=== PATIENT | female | born 1955 | race Two or more races ===

== ENCOUNTER 2019-06-14 14:39 | Inpatient (IN) | payer MEDICAID ==
[~2019-06-14] VITALS: Ht 154.9 cm; Wt 85.0 kg
[2019-06-14] MEDS ORDERED: ASPirin 81 mg TAB PO ONE (15:15)
[2019-06-14 15:41] LABS: Albumin 3.3 g/dL (3.4-5.0); Anion Gap 9 (5-15); Blood Urea Nitrogen 14 mg/dL (7-18); Calcium 8.1 mg/dL (8.5-10.1); Carbon Dioxide 25 mmol/L (21-32); Chloride 106 mmol/L (98-107); Glucose 393 mg/dL (74-106); Potassium 3.7 mmol/L (3.5-5.1); Sodium 140 mmol/L (136-145)
[2019-06-14 15:43] LABS: Basophils # (auto) 0 uL; Basophils % (auto) 0.5 % (0.0-2.0); Eosinophils # (auto) 0 uL; Eosinophils % (auto) 0.9 % (0.0-7.0); Hematocrit 32.9 % (36.0-46.0); Hemoglobin 11.3 g/dL (12.2-16.2); Lymphocytes # (auto) 0.6 uL; Lymphocytes % (auto) 10.8 % (10.0-50.0); Mean Corpuscular Hemoglobin 32.5 pg (28.0-32.0); Mean Corpuscular Hgb Conc. 34.2 g/dL (32.0-36.0); Mean Corpuscular Volume 94.9 fL (80.0-100.0); Monocytes # (auto) 0.4 uL; Monocytes % (auto) 6.8 % (0.0-12.0); Neutrophils # (auto) 4.3 uL; Nucleated Red Blood Cells % 0.1 %; Platelet Count (auto) 115 10^3/uL (140-450); Red Blood Cells 3.47 10^6/uL (4.0-5.20); Red Cell Distribution Width 14.7 % (11.8-14.3); White Blood Cell 5.3 10^3/uL (4.4-10.8)
[2019-06-14 15:44] LABS: Alanine Aminotransferase 28 U/L (13-56); Alkaline Phosphatase 140 U/L (45-117); Aspartate Aminotransferase 29 U/L (15-37); BUN/Creatinine Ratio 13.7; Bilirubin, Total 1.2 mg/dL (0.2-1.0); GFR African American 71 mL/min; GFR Non-African American 59 mL/min; Total Protein 6.7 g/dL (6.4-8.2)
[2019-06-14 15:53] LABS: INR 1.04 (0.9-1.15); Partial Thromboplastin Time 25.9 sec (23.64-32.05)
[2019-06-14] MEDS ORDERED: SODIUM CHLORIDE 0.9% 1,000 ML IV ONE (15:58)
[2019-06-14] MEDS ORDERED: NITROGLYCERIN 0.4 MG SL TAB SL PRN (17:15)
[2019-06-14] MEDS ORDERED: ONDANSETRON HCL 4 MG/2 ML VIAL IV PRN (17:15)
[2019-06-14] MEDS ORDERED: HYDROcodone-ACET 5/325MG TAB PO PRN (17:15)
[2019-06-14] MEDS ORDERED: DEXTROSE (50%) 50ML SYRG IV PRN ×2 (17:15→21:00)
[2019-06-14] MEDS ORDERED: MORPHINE SULF INJ 2 MG/ML SYRINGE 1ML IV PRN ×2 (17:15)
[2019-06-14] MEDS ORDERED: ACETAMINOPHEN 500 MG TAB PO PRN (17:15)
[2019-06-14] MEDS ORDERED: hydrALAZINE HCL 20 MG/ML VL IV PRN (17:15)
[2019-06-14 18:01] LABS: Urine Bacteria FEW /hpf (None Seen); Urine Blood Negative /uL (Negative); Urine Hyaline Cast FEW /lpf (0 - 2); Urine Mucus FEW (None Seen); Urine WBC 4 /hpf (0 - 5)
--- NOTE | 2019-06-14 18:50 | NUR ---
Pt arrived to unit. No signs or symptoms of pain/distress/SOB. Patient is alert and oriented x 4. Call light is within reach and patient is comfortable and stable at this time. Will continue to monitor.
[2019-06-14 19:00] VITALS: BP 140/80
--- NOTE | 2019-06-14 19:00 | NUR ---
Med Rec Patient unable to recall her medication list. Patient will have family members bring in list tomorrow. Will notify primary nurse.
[2019-06-14 21:52] LABS: Basophils # (auto) 0 uL; Basophils % (auto) 0.5 % (0.0-2.0); Eosinophils # (auto) 0 uL; Eosinophils % (auto) 1.6 % (0.0-7.0); Hematocrit 27.7 % (36.0-46.0); Hemoglobin 9.7 g/dL (12.2-16.2); Lymphocytes # (auto) 0.4 uL; Lymphocytes % (auto) 17.3 % (10.0-50.0); Mean Corpuscular Hgb Conc. 34.9 g/dL (32.0-36.0); Mean Corpuscular Volume 94.7 fL (80.0-100.0); Monocytes # (auto) 0.2 uL; Monocytes % (auto) 9.5 % (0.0-12.0); Neutrophils # (auto) 1.8 uL; Neutrophils % (auto) 71.1 % (37.0-80.0); Nucleated Red Blood Cells % 0.1 %; Platelet Count (auto) 73 10^3/uL (140-450); Red Blood Cells 2.93 10^6/uL (4.0-5.20); Red Cell Distribution Width 14.6 % (11.8-14.3); White Blood Cell 2.6 10^3/uL (4.4-10.8)
[2019-06-14 22:00] VITALS: BP 140/80
[2019-06-14] MEDS ORDERED: DOCUSATE SOD 100 MG CAP PO SCH (22:00)
[2019-06-14] MEDS ORDERED: ACCU-CHEK COMFORT CURVE STRIP VI SCH (22:00)
[2019-06-14] MEDS ORDERED: InsuLIN REG 1unit/0.01ml Soln (100units/ml) SC SCH (22:00)
[2019-06-14] MEDS: DOCUSATE SOD 100 MG CAP PO SCH (22:00)
[2019-06-14] MEDS ORDERED: METOPROLOL TARTRATE 25 MG TAB PO SCH (22:00)
[2019-06-14] MEDS ORDERED: ATORVASTATIN 20 MG TAB PO SCH (22:00)
[2019-06-14 22:14] LABS: INR 1.06 (0.9-1.15); Partial Thromboplastin Time 26.7 sec (23.64-32.05)
[2019-06-14 22:17] LABS: Calcium 8.1 mg/dL (8.5-10.1); Potassium 3.9 mmol/L (3.5-5.1)
[2019-06-14] MEDS: METOPROLOL TARTRATE 25 MG TAB PO SCH (22:35)
[2019-06-14] MEDS: ATORVASTATIN 20 MG TAB PO SCH (22:35)
[2019-06-14] MEDS: HYDROcodone-ACET 5/325MG TAB PO PRN (22:36)
[2019-06-14] MEDS: ACCU-CHEK COMFORT CURVE STRIP VI SCH (22:38)
[2019-06-14] MEDS: InsuLIN REG 1unit/0.01ml Soln (100units/ml) SC SCH (22:50)
[2019-06-15 05:42] VITALS: BP 126/66
[2019-06-15] MEDS: ACCU-CHEK COMFORT CURVE STRIP VI SCH ×4 (06:49→21:37)
[2019-06-15] MEDS: InsuLIN REG 1unit/0.01ml Soln (100units/ml) SC SCH ×4 (06:50→21:37)
--- NOTE | 2019-06-15 07:10 | NUR ---
Opening Shift Note Received report on the patient. Patient awake lying in bed eating breakfast. Patient shows no signs of distress at this time. Discussed plan of care with the patient. Bed is in lowest position, side rails up x2, and call light is within reach. Will continue to monitor.
[2019-06-15 09:00] VITALS: BP 136/70
[2019-06-15] MEDS: LISINOPRIL 10 MG TAB PO SCH (09:54)
[2019-06-15] MEDS: HYDROcodone-ACET 5/325MG TAB PO PRN ×2 (09:54→18:59)
[2019-06-15] MEDS: METOPROLOL TARTRATE 25 MG TAB PO SCH ×2 (09:54→21:36)
[2019-06-15] MEDS: ASPirin-EC 81 mg tab PO SCH (09:55)
[2019-06-15] MEDS: FAMOTIDINE 20 MG TAB PO SCH (09:55)
[2019-06-15] MEDS: DOCUSATE SOD 100 MG CAP PO SCH ×2 (09:56→21:35)
[2019-06-15] MEDS ORDERED: LISINOPRIL 10 MG TAB PO SCH (10:00)
[2019-06-15] MEDS ORDERED: FAMOTIDINE 20 MG TAB PO SCH (10:00)
[2019-06-15] MEDS ORDERED: ASPirin-EC 81 mg tab PO SCH (10:00)
[2019-06-15] MEDS ORDERED: cefTRIAXone 1GM/50ML D5W 50 ML IV ONE (10:30)
[2019-06-15 11:14] LABS: Hepatitis B Surface Antibody Negative
[2019-06-15 11:54] LABS: Hepatitis A Total Antibody Negative
[2019-06-15 13:00] VITALS: BP 127/68
[2019-06-15 13:27] LABS: Hepatitis B Core Total AB Negative
[2019-06-15 13:28] LABS: Hepatitis B Surface Antigen Negative (Negative); Hepatitis C Antibody Negative (Negative)
--- NOTE | 2019-06-15 13:45 | NUR ---
UA Urine sample collected and sent to lab.
[2019-06-15 14:18] LABS: Alcohol, Urine < 3.0 mg/dL (0-5); Amphetamine Screen, Urine NEGATIVE (NEGATIVE); Barbiturate Scree,Urine NEGATIVE (NEGATIVE); Benzodiazephine Screen, Urine NEGATIVE (NEGATIVE); Cannabinoid Screen, Urine NEGATIVE (NEGATIVE); Cocaine Screen, Urine NEGATIVE (NEGATIVE); Opiate Scree,Urine POSITIVE (NEGATIVE); Phencyclidine Screen, Urine NEGATIVE (NEGATIVE)
[2019-06-15 17:00] VITALS: BP 123/57
--- NOTE | 2019-06-15 19:00 | NUR ---
Opening Shift Note Assumed care of patient, awake and alert. No S/S of distress/SOB or pain. Instructed on POC and to call for assist PRN, will continue to monitor for changes Q1hr and PRN.
[2019-06-15] MEDS: ATORVASTATIN 20 MG TAB PO SCH (21:36)
[2019-06-15 21:37] VITALS: BP 138/72
--- NOTE | 2019-06-15 23:39 | NUR ---
KEVIN Zurita called pharmacy and informed them about patient's morphine being present on the E-MAR but not in the pyxis. Pharmacy informed RN they will reprocess the order to see if that fixes the issue.
[2019-06-15] MEDS ORDERED: MORPHINE SULF INJ 2 MG/ML SYRINGE 1ML IV PRN (23:45)
[2019-06-16] VITALS (7 sets, daily range): BP systolic 96–145; BP diastolic 58–75
[2019-06-16 06:22] LABS: Basophils # (auto) 0 uL; Basophils % (auto) 0.7 % (0.0-2.0); Eosinophils # (auto) 0.1 uL; Eosinophils % (auto) 3.1 % (0.0-7.0); Hematocrit 29.2 % (36.0-46.0); Hemoglobin 10.2 g/dL (12.2-16.2); Lymphocytes # (auto) 0.5 uL; Lymphocytes % (auto) 18.5 % (10.0-50.0); Mean Corpuscular Hemoglobin 33.1 pg (28.0-32.0); Mean Corpuscular Volume 94.6 fL (80.0-100.0); Monocytes # (auto) 0.3 uL; Monocytes % (auto) 11.7 % (0.0-12.0); Neutrophils # (auto) 1.8 uL; Platelet Count (auto) 74 10^3/uL (140-450); Red Blood Cells 3.09 10^6/uL (4.0-5.20); Red Cell Distribution Width 14.2 % (11.8-14.3); White Blood Cell 2.7 10^3/uL (4.4-10.8)
[2019-06-16] MEDS: ACCU-CHEK COMFORT CURVE STRIP VI SCH ×4 (06:31→21:32)
[2019-06-16] MEDS: InsuLIN REG 1unit/0.01ml Soln (100units/ml) SC SCH ×4 (06:31→21:33)
[2019-06-16 06:37] LABS: Albumin 2.9 g/dL (3.4-5.0); Calcium 8.4 mg/dL (8.5-10.1); Magnesium 1.8 mg/dL (1.6-2.6)
[2019-06-16 06:42] LABS: % Iron Saturation 27.4 % (15-50)
[2019-06-16 06:43] LABS: BUN/Creatinine Ratio 27.8; Bilirubin, Total 1.4 mg/dL (0.2-1.0); Total Protein 6.1 g/dL (6.4-8.2)
[2019-06-16 06:50] LABS: Ferritin 98.1 ng/mL (10-322)
[2019-06-16 06:51] LABS: Folate (Folic Acid) 11.39 ng/mL (5.38-24)
--- NOTE | 2019-06-16 07:20 | NUR ---
Opening Shift Note Received report on the patient. Awake lying in bed. Patient shows no signs of distress at this time. Discussed plan of care with the patient. Bed is in the lowest position, side rails up x2, and the call light is within reach. Will continue to monitor.
[2019-06-16] MEDS ORDERED: ADENOSINE 71 MG in GIVE UN-DILUTED 0 ML IV STA (08:13)
[2019-06-16] MEDS: cefTRIAXone 1GM/50ML D5W 50 ML IV SCH (08:53)
--- NOTE | 2019-06-16 09:14 | NUR ---
IV insertion IV access obtained, via clean sterile technique by inserting a 20 gauge catheter at the left AC after 1 attempt. IV secured properly. No trauma to site. Patient tolerated well.
[2019-06-16] MEDS: DOCUSATE SOD 100 MG CAP PO SCH ×2 (10:00→21:31)
--- NOTE | 2019-06-16 10:01 | NUR ---
Stress Test Patient gone down to stress test. No signs of distress at this time.
[2019-06-16] MEDS: ASPirin-EC 81 mg tab PO SCH (11:44)
[2019-06-16] MEDS: FAMOTIDINE 20 MG TAB PO SCH (11:45)
[2019-06-16] MEDS: LISINOPRIL 10 MG TAB PO SCH (11:46)
[2019-06-16] MEDS: METOPROLOL TARTRATE 25 MG TAB PO SCH ×2 (11:46→21:32)
[2019-06-16] MEDS ORDERED: POLYETHYLENE GLYCOL 17 GM PWDR PO ONE (15:15)
[2019-06-16] MEDS: HYDROcodone-ACET 5/325MG TAB PO PRN ×2 (15:57→21:33)
--- NOTE | 2019-06-16 19:40 | NUR ---
IV insertion IV access to left FA obtained, via clean sterile technique by inserting 20 gauge catheter after first attempt. IV secured properly. No trauma to site. Patient tolerated procedure well.
[2019-06-16] MEDS: ATORVASTATIN 20 MG TAB PO SCH (21:31)
[2019-06-16] MEDS: MAGNESIUM OXIDE 400 MG TAB PO SCH (21:32)
[2019-06-17] MEDS: HYDROcodone-ACET 5/325MG TAB PO PRN ×2 (03:13→09:14)
[2019-06-17 06:18] VITALS: BP 139/79
[2019-06-17] MEDS: ACCU-CHEK COMFORT CURVE STRIP VI SCH ×3 (06:46→17:49)
[2019-06-17] MEDS: InsuLIN REG 1unit/0.01ml Soln (100units/ml) SC SCH ×3 (06:46→17:49)
[2019-06-17] MEDS ORDERED: SODIUM CHLORIDE 0.9% 1,000 ML IV ONE (07:45)
--- NOTE | 2019-06-17 08:43 | NUR ---
Opening Shift Note Assumed care of patient, awake and alert, oriented x 4 and verbally responsive. Respiratory even and unlabored. No S/S of distress/SOB or pain. Skin is warm and dry to touch, no s/s of hyperglycemia or hypoglycemia noted. NPO for LHC, patient tolerated well. Instructed on POC and to call for assist PRN, will continue to monitor for changes Q1hr and PRN.
[2019-06-17 09:05] VITALS: BP 141/80
--- NOTE | 2019-06-17 09:05 | NUR ---
Patient does not want to sign a consent form until the doctor give explanation about procedure, will inform medical lab technologist nurse.
[2019-06-17] MEDS: cefTRIAXone 1GM/50ML D5W 50 ML IV SCH (09:06)
[2019-06-17] MEDS: FAMOTIDINE 20 MG TAB PO SCH (09:07)
[2019-06-17] MEDS: MAGNESIUM OXIDE 400 MG TAB PO SCH (09:07)
[2019-06-17] MEDS: LISINOPRIL 10 MG TAB PO SCH (09:08)
[2019-06-17] MEDS: METOPROLOL TARTRATE 25 MG TAB PO SCH (09:08)
[2019-06-17] MEDS: ASPirin-EC 81 mg tab PO SCH (09:08)
[2019-06-17] MEDS: DOCUSATE SOD 100 MG CAP PO SCH (09:09)
--- NOTE | 2019-06-17 10:32 | NUR ---
Patient left unit to process laboratory specialist.
[2019-06-17] MEDS ORDERED: LIDOCAINE 2%HCL (LOCAL ANESTH.) INJ 20ML MDV ONE (10:35)
[2019-06-17] MEDS ORDERED: IODIXANOL 320MG/ML 100ML BTL IV ONE (10:35)
[2019-06-17] MEDS ORDERED: VERAPAMIL 2.5MG/ML INJ 2ML VIAL IV ONE (11:42)
[2019-06-17] MEDS ORDERED: ANGIOMAX 250 MG VIAL IV ONE (11:42)
[2019-06-17] MEDS ORDERED: fentaNYL CITRATE 100 MCG/2 ML VL ONE (11:42)
[2019-06-17] MEDS ORDERED: MIDAZOLAM HCL 1MG/1ML-2 ML VIAL ONE (11:43)
[2019-06-17] MEDS ORDERED: SODIUM CHL 0.9% 0 ML ONE (11:43)
[2019-06-17] MEDS ORDERED: HEPARIN SODIUM (PORCINE) 5000 UNITS/ML 1ML VIAL ONE (12:33)
[2019-06-17 13:28] VITALS: BP 148/74
--- NOTE | 2019-06-17 13:40 | NUR ---
Patient came back from semiconductor lab technician , Vasc band on the right wrist, will start deflated around 1345.
--- NOTE | 2019-06-17 13:41 | NUR ---
Neris (DAVID) called regarding central lab technician notified that right hand has dark skin color, cold to touch. However, never get any report from warehouse shift supervisor. Assessed patient to right hand, skin a bit dark and warm to touch, no swelling or bleeding noted. Patient stated from the previous IV at ER, cold pack is placed. Charge nurse (Mago) called , will come to assess. Will continue to monitor.
[2019-06-17] MEDS ORDERED: ASP81EC PO (13:48)
[2019-06-17] MEDS ORDERED: ATOR20TA50 PO (13:48)
--- NOTE | 2019-06-17 14:20 | NUR ---
Assess pt's rt hand, pt's rt hand has redness and swelling, Dr. Kuo informed and doctor came to bed side to assess pt's rt hand, doctor educated the pt that the redness and swelling was due to the IV infiltration, pt informed by doctor that the redness and swelling will last for the next 3 to 5 days, pt educated by doctor to place ice pack, to take Motrin over the counter for pain, and to come to the emergency room for evaluation if the swelling and redness increases.
--- NOTE | 2019-06-17 14:39 | NUR ---
Called Tarsha regarding E-prescription, stated it will be ready in 5 mins , patient notified.
[2019-06-17 14:58] VITALS: BP 148/74
--- NOTE | 2019-06-17 16:15 | NUR ---
Removed Vasc band from left wrist, covered with Gauzed and Tegaderm, no s/s of bleeding or hematoma noted. Will continue to monitor.
--- NOTE | 2019-06-17 17:06 | NUR ---
Elli Garza (DOROTHY) spoke to patient regarding PCP , per ELLI patient will change to [facility] and requesting change [facility] PCP to Dr. Kuo #[phone] Address : [address] [place] [address] Rd, [place], [address].
[2019-06-17 17:27] VITALS: BP 133/76
--- NOTE | 2019-06-17 17:45 | NUR ---
No bleeding or hematoma to left wrist.
--- NOTE | 2019-06-17 17:55 | NUR ---
Discharge instructions given as ordered. Encourage to follow up with (Patient requesting change [facility] PCP to Dr. Kuo #[phone] Address : [address], [place], [address]) as instructed. All questions and concerns addressed. Patient verbalized understanding. Medication reconciliation form completed and copy given to patient. IV removed with catheter intact, pressure dressing applied. Telemetry unit returned to ICU. Patient taken to vehicle via wheelchair with all personal belongings, accompanied by staff and family member. No distress noted at time of departure.
== END 2019-06-17 17:55 | disposition home or self-care (01) | DRG 191 ==
LOC: ER 14:44 → TELE-WESTW 14:45 → ER 18:40 → EDSTATUS 20:20
PROVIDERS: ADMIT Nurse Practitioner Acute Care; ATTEND Internal Medicine
PROC: 4A023N7 Measurement of Cardiac Sampling and Pressure, Left Heart, Percutaneous Approach (ICD-10-PCS; principal; 2019-06-17)
PROC: B211YZZ Fluoroscopy of Multiple Coronary Arteries using Other Contrast (ICD-10-PCS; 2019-06-17)
PROC: B215YZZ Fluoroscopy of Left Heart using Other Contrast (ICD-10-PCS; 2019-06-17)
DX: I24.9 Acute ischemic heart disease, unspecified (principal); D69.6 Thrombocytopenia, unspecified; I95.9 Hypotension, unspecified; E66.01 Morbid (severe) obesity due to excess calories; K76.0 Fatty (change of) liver, not elsewhere classified; D64.9 Anemia, unspecified; E11.9 Type 2 diabetes mellitus without complications; F41.9 Anxiety disorder, unspecified; I10 Essential (primary) hypertension; N39.0 Urinary tract infection, site not specified; I45.10 Unspecified right bundle-branch block; Z90.49 Acquired absence of other specified parts of digestive tract; Z79.84 Long term (current) use of oral hypoglycemic drugs; Z68.35 Body mass index [BMI] 35.0-35.9, adult; Z83.3 Family history of diabetes mellitus; Z82.49 Family history of ischemic heart disease and other diseases of the circulatory system; Z80.0 Family history of malignant neoplasm of digestive organs; Z79.899 Other long term (current) drug therapy
CPT/HCPCS: 36415; 71045; 76705; 78452; 80048; 80053; 80061; 80307; 81001; 82270; 82607; 82728; 82746; 82962; 83036; 83540; 83550; 83735; 83880; 84443; 84484; 85025; 85610; 85730; 86141; 86703; 86704; 86706; 86708; 86803; 87340; 93005; 93017; 93306; 93458; 96361; 96365; 99152; 99153; G0378; J0153; J0696; J1815; J2250; Q9967

== ENCOUNTER 2020-02-29 12:13 | Emergency (ER) | payer MEDICAID ==
[~2020-02-29 12:13] MED LIST: ASPI-394 PO; ATOR20TA50 PO
== END 2020-02-29 13:26 | disposition left against medical advice (07) ==
LOC: ER 12:13
DX: R50.9 Fever, unspecified (principal); Z53.21 Procedure and treatment not carried out due to patient leaving prior to being seen by health care provider

== ENCOUNTER 2020-03-11 21:45 | Inpatient (IN) | payer MEDICAID ==
[~2020-03-11] VITALS: Ht 157.5 cm; Wt 90.3 kg
[2020-03-11 23:20] LABS: Hematocrit 33.8 % (36.0-46.0); Hemoglobin 11.1 g/dL (12.2-16.2); Mean Corpuscular Hemoglobin 30.6 pg (28.0-32.0); Mean Corpuscular Hgb Conc. 32.9 g/dL (32.0-36.0); Mean Corpuscular Volume 93.2 fL (80.0-100.0); Platelet Count (auto) 205 10^3/uL (140-450); Red Blood Cells 3.63 10^6/uL (4.0-5.20); Red Cell Distribution Width 13.8 % (11.8-14.3); White Blood Cell 18.7 10^3/uL (4.4-10.8)
[2020-03-11] MEDS ORDERED: SODIUM CHLORIDE 0.9% 1,000 ML IV ONE (23:30)
[2020-03-11 23:45] LABS: Alanine Aminotransferase 17 U/L (13-56); Albumin 2.5 g/dL (3.4-5.0); Anion Gap 21 (5-15); Aspartate Aminotransferase 19 U/L (15-37); BUN/Creatinine Ratio 13.5; Blood Urea Nitrogen 46 mg/dL (7-18); Calcium 9.1 mg/dL (8.5-10.1); Carbon Dioxide 15 mmol/L (21-32); Chloride 94 mmol/L (98-107); GFR African American 18 mL/min; GFR Non-African American 14 mL/min; Glucose 207 mg/dL (74-106); Magnesium 1.5 mg/dL (1.6-2.6); Potassium 4.5 mmol/L (3.5-5.1); Sodium 130 mmol/L (136-145)
[2020-03-11 23:50] LABS: Alkaline Phosphatase 143 U/L (45-117); Basophils % (manual) 0 (0.0-2.0); Bilirubin, Total 2.2 mg/dL (0.2-1.0); Blast Cells 0; Eosinophils % (manual) 0 (0-7); Lactic Acid w/Reflex 9.8 mmol/L (0.4-2.0); Promyelocytes % 0; Reactive Lymphocytes 0; Total Protein 6.8 g/dL (6.4-8.2)
[2020-03-11 23:55] LABS: Band Neutrophils % (manual) 12; Lymphocytes % (manual) 2 (10.0-50.0); Metamyelocytes % 1; Monocytes % (manual) 1 (0-12); Myelocytes % 1
[2020-03-12 00:15] LABS: INR 1.2 (0.9-1.15); Partial Thromboplastin Time 29.3 sec (23.0-31.2)
[2020-03-12] MEDS ORDERED: SODIUM CHLORIDE 0.9% 1,000 ML IV ONE (00:18)
[2020-03-12] MEDS ORDERED: ACETAMINOPHEN 325 MG TAB PO PRN ×2 (00:30→06:00)
[2020-03-12] MEDS ORDERED: MORPHINE SULFATE 4 MG/ML SYR/VIAL IV PRN (00:30)
[2020-03-12] MEDS ORDERED: SODIUM CHLORIDE 0.9% 2,700 ML IV ONE (00:30)
[2020-03-12] MEDS ORDERED: ONDANSETRON HCL 4 MG/2 ML VIAL IV ONE (00:30)
[2020-03-12] MEDS: PIPERACILLIN-TAZOB 2.25GM 50 ML IV SCH ×2 (01:04→06:00)
[2020-03-12] MEDS: NOREPINEPHRINE 8 MG/250ML KIT 250 ML IV SCH (02:14)
[2020-03-12] MEDS ORDERED: VANCOMYCIN 1GM/250ML 250 ML IV ONE (02:30)
[2020-03-12 03:38] LABS: Urine Bacteria MANY /hpf (None Seen); Urine Blood 2+ /uL (Negative); Urine Budding Yeast FEW /hpf (None Seen); Urine Hyaline Cast MANY /lpf (0 - 2); Urine Specific Gravity 1.025 (1.001-1.035); Urine WBC 89 /hpf (0 - 5); Urine WBC Clumps PRESENT /hpf (None Seen)
[2020-03-12] MEDS: PHENYLEPHRINE IV 250 ML IV SCH ×5 (04:22→07:07)
[2020-03-12] MEDS ORDERED: PIPERACILLIN-TAZOB 3.375GM 100 ML IV SCH (06:00)
[2020-03-12] MEDS ORDERED: ONDANSETRON HCL 4 MG/2 ML VIAL IV PRN (06:00)
[2020-03-12] MEDS ORDERED: HYDROcodone-ACET 5/325MG TAB PO PRN (06:00)
[2020-03-12] MEDS ORDERED: DOCUSATE SOD 100 MG CAP PO PRN (06:00)
[2020-03-12] MEDS ORDERED: MORPHINE SULF INJ 2 MG/ML SYRINGE 1ML IV PRN ×2 (06:00→07:30)
[2020-03-12] MEDS ORDERED: LORazepam 0.5 MG TAB PO PRN (06:00)
[2020-03-12 06:35] LABS: Hematocrit 35.6 % (36.0-46.0); Hemoglobin 11.6 g/dL (12.2-16.2); Mean Corpuscular Hgb Conc. 32.6 g/dL (32.0-36.0); Platelet Count (auto) 289 10^3/uL (140-450); Red Blood Cells 3.75 10^6/uL (4.0-5.20); Red Cell Distribution Width 14.1 % (11.8-14.3); White Blood Cell 16.7 10^3/uL (4.4-10.8)
[2020-03-12 06:42] LABS: Basophils % (manual) 0 (0.0-2.0); Blast Cells 0; Promyelocytes % 0; Reactive Lymphocytes 0
[2020-03-12 06:54] LABS: Chloride 100 mmol/L (98-107); Potassium 4.1 mmol/L (3.5-5.1); Sodium 131 mmol/L (136-145)
[2020-03-12 06:59] LABS: Lactic Acid w/Reflex 9.4 mmol/L (0.4-2.0)
[2020-03-12 07:09] LABS: Anion Gap 17 (5-15); BUN/Creatinine Ratio 14.1; Blood Urea Nitrogen 43 mg/dL (7-18); Calcium 8.4 mg/dL (8.5-10.1); Carbon Dioxide 14 mmol/L (21-32); Cholesterol 69 mg/dL (< 200); GFR African American 20 mL/min; GFR Non-African American 17 mL/min; Glucose 178 mg/dL (74-106); HDL Cholesterol 8 mg/dL (40-59); LDL Cholesterol 26 mg/dL (< 100); Triglycerides 222 mg/dL (< 150)
[2020-03-12] MEDS ORDERED: VANCOMYCIN PER PHARMACY 0 MG IV SCH (08:00)
[2020-03-12] MEDS: SODIUM CHLORIDE 0.9% 1,000 ML IV SCH ×4 (08:33→23:31)
[2020-03-12] MEDS: MEROPENEM 500MG IVPB 50 ML IV SCH ×2 (09:28→19:59)
[2020-03-12] MEDS ORDERED: VANCOMYCIN 1GM/250ML 250 ML IV SCH (10:00)
[2020-03-12 10:03] LABS: Band Neutrophils % (manual) 20; Eosinophils % (manual) 1 (0-7); Metamyelocytes % 1; Monocytes % (manual) 3 (0-12); Myelocytes % 3
[2020-03-12 10:04] LABS: Lymphocytes % (manual) 7 (10.0-50.0)
[2020-03-12 11:21] LABS: Lactic Acid w/Reflex 8.1 mmol/L (0.4-2.0)
[2020-03-13] VITALS (10 sets, daily range): BP systolic 72–138; BP diastolic 27–71
[2020-03-13] MEDS: NOREPINEPHRINE 8 MG/250ML KIT 250 ML IV SCH ×2 (01:50→16:56)
[2020-03-13] MEDS ORDERED: LORazepam 2MG/ML-1ML VIAL IV ONE (02:00)
[2020-03-13] MEDS ORDERED: LORazepam 2MG/ML-1ML VIAL ONE (02:09)
[2020-03-13] MEDS: SODIUM CHLORIDE 0.9% 1,000 ML IV SCH ×6 (03:03→23:15)
[2020-03-13] MEDS ORDERED: PROPOFOL 100 ML IV SCH (03:43)
[2020-03-13] MEDS ORDERED: MIDAZOLAM DRIP 50 mg/50mL 50 ML IV SCH (03:43)
[2020-03-13] MEDS ORDERED: SUCCINYLCHOLINE CHLORIDE 20 MG/ML 10ML VIAL IV ONE ×2 (03:45→03:50)
[2020-03-13] MEDS ORDERED: ETOMIDATE (2MG/ML) 20ML VIAL IV ONE ×2 (03:45→03:50)
[2020-03-13] MEDS: SODIUM BICARB 50ML SYR 150 ML in SODIUM CHLORIDE 0.9% 1,000 ML IV SCH ×2 (04:20→23:41)
--- NOTE | 2020-03-13 04:35 | NUR ---
RT NOTE PT INTUBATED ON FIRST ATTEMPT BY DR TONY. PT INTUBATED WITH A SIZE 8.0 ETT SECURED 22CM AT THE LIP WITH A FERN. PT IS ON VENT SETTINGS OF AC 20, VT 500, PEEP +5, 40% FIO2. PT IS TOLERATING THESE SETTINGS WELL. FOLLOW UP ABG TO BE DONE IN 1 HOUR. VENT IS PLUGGED INTO RED OUTLET. ALRAMS ARE SET AND AUDIBLE.PT IS USING VENT V20.
[2020-03-13] MEDS ORDERED: SODIUM BICARBONATE 8.4% INJ 50ML SYRINGE ONE ×3 (04:50→15:49)
[2020-03-13 06:32] LABS: Hematocrit 36.4 % (36.0-46.0); Hemoglobin 10.6 g/dL (12.2-16.2); Mean Corpuscular Hemoglobin 30.4 pg (28.0-32.0); Mean Corpuscular Hgb Conc. 29.2 g/dL (32.0-36.0); Mean Corpuscular Volume 104.1 fL (80.0-100.0); Platelet Count (auto) 300 10^3/uL (140-450); White Blood Cell 25.8 10^3/uL (4.4-10.8)
[2020-03-13 06:40] LABS: Basophils % (manual) 0 (0.0-2.0); Blast Cells 0; Eosinophils % (manual) 0 (0-7); Promyelocytes % 0; Reactive Lymphocytes 0
[2020-03-13 06:45] LABS: BUN/Creatinine Ratio 15.6; Calcium 8.1 mg/dL (8.5-10.1); Lactic Acid w/Reflex 13.9 mmol/L (0.4-2.0); Magnesium 1.9 mg/dL (1.6-2.6)
[2020-03-13 07:55] LABS: Potassium 5.7 mmol/L (3.5-5.1)
[2020-03-13] MEDS: MEROPENEM 500MG IVPB 50 ML IV SCH ×2 (08:19→20:00)
[2020-03-13] MEDS ORDERED: VANCOMYCIN 1GM/250ML 250 ML IV ONE (10:00)
[2020-03-13] MEDS: PHENYLEPHRINE IV 250 ML IV SCH ×5 (10:33→23:20)
--- NOTE | 2020-03-13 11:02 | NUR ---
PT REMAINS ON VENTILATOR ON PREVIOUS VENT SETTINGS. NO CHANGES DONE. STILL WAITING FOR NEW ORDERS.
[2020-03-13 11:19] LABS: Metamyelocytes % 2; Monocytes % (manual) 3 (0-12); Myelocytes % 5
[2020-03-13 11:20] LABS: Lymphocytes % (manual) 18 (10.0-50.0)
[2020-03-13 11:21] LABS: Band Neutrophils % (manual) 30
[2020-03-13] MEDS ORDERED: InsuLIN REG 1unit/0.01ml Soln (100units/ml) IV ONE (12:30)
[2020-03-13] MEDS ORDERED: CALCIUM CHL 100MG/ML 1,000 MG in D5W 5% 100 ML IV ONE (12:30)
[2020-03-13] MEDS ORDERED: MIDAZOLAM DRIP 50 mg/50mL 50 ML IV ONE (12:40)
--- NOTE | 2020-03-13 12:45 | NUR ---
WOUND CARE NOTE: ADDED PATIENT TO [facility] MONITORING D/T INTUBATION STATUS IN THE ER. PATIENT ADMITTED TO [facility] WITH DIAGNOSIS OF SEVERE SEPSIS, PYELONEPHRITIS. CURRENT MITESH SCORE ASSESSED AT 10. PATIENT IS RESTING ON GURNEY. SHE IS INTUBATED, SEDATED. ORDERED VCP AIR BED. PATIENT TO BE PLACED, PENDING DELIVERY BY [facility]. PER BEDSIDE NURSE, PATIENT IS CURRENTLY WOUND FREE. SKIN/WOUND CARE PLAN IMPLEMENTED. RECOMMENDATIONS: FREQUENT TURN SCHEDULE Q 2 HOURS, PRN CONDITION PERMITS, WITH PRESSURE REDISTRIBUTION USING PILLOWS/WEDGES, SPECIALTY AIR BED PREVENTATIVE, BID/PRN APPLICATION WITH MOISTURE BARRIER CREAM, OPTIFOAM GENTLE SACRAL DRESSING PREVENTATIVE, SKIN/WOUND CARE PLAN, DIETARY CONSULT FOR INTUBATION STATUS, CONTINUED MONITORING BY WOUND CARE TEAM.
[2020-03-13] MEDS ORDERED: DEXTROSE 50% SYRINGE 50 ML IV ONE (13:28)
[2020-03-13] MEDS: DOPamine 1600MCG/ML D5W 250 ML IV SCH ×2 (14:30→21:10)
[2020-03-13] MEDS ORDERED: SODIUM BICARBONATE 8.4 % INJ 50ML VIAL IV STA (15:27)
[2020-03-13] MEDS: MIDAZOLAM DRIP 50 mg/50mL 50 ML IV SCH (15:30)
[2020-03-13] MEDS ORDERED: VASOPRESSIN 50 UNITS in D5W 5% 247.5 ML IV SCH (20:15)
[2020-03-13] MEDS ORDERED: VASOPRESSIN 20 UNIT/ML ONE ×2 (20:46)
[2020-03-13] MEDS: ALBUMIN 25% 100 ML IV SCH ×2 (21:00→22:22)
[2020-03-14 00:28] VITALS: BP 81/63
[2020-03-14] MEDS: MIDAZOLAM DRIP 50 mg/50mL 50 ML IV SCH (00:50)
[2020-03-14] MEDS: PHENYLEPHRINE IV 250 ML IV SCH ×3 (02:00→06:59)
[2020-03-14] MEDS: DOPamine 1600MCG/ML D5W 250 ML IV SCH ×2 (02:15→06:05)
[2020-03-14 02:33] VITALS: BP 132/44
[2020-03-14] MEDS: NOREPINEPHRINE 8 MG/250ML KIT 250 ML IV SCH (03:02)
[2020-03-14] MEDS: SODIUM CHLORIDE 0.9% 1,000 ML IV SCH ×2 (03:13→07:00)
[2020-03-14 04:25] VITALS: BP 152/64
[2020-03-14 07:07] VITALS: BP 0/0
== END 2020-03-14 07:10 | disposition expired | DRG 720 ==
LOC: ER 21:45 → TELE 21:46
PROVIDERS: ADMIT Hospitalist; ATTEND Internal Medicine
PROC: 0BH17EZ Insertion of Endotracheal Airway into Trachea, Via Natural or Artificial Opening (ICD-10-PCS; principal; 2020-03-13)
PROC: 5A1935Z Respiratory Ventilation, Less than 24 Consecutive Hours (ICD-10-PCS; 2020-03-13)
PROC: 02HV33Z Insertion of Infusion Device into Superior Vena Cava, Percutaneous Approach (ICD-10-PCS; 2020-03-13)
PROC: B54BZZA Ultrasonography of Right Lower Extremity Veins, Guidance (ICD-10-PCS; 2020-03-13)
PROC: 5A1D70Z Performance of Urinary Filtration, Intermittent, Less than 6 Hours Per Day (ICD-10-PCS; 2020-03-13)
PROC: 06HY33Z Insertion of Infusion Device into Lower Vein, Percutaneous Approach (ICD-10-PCS; 2020-03-13)
DX: A41.9 Sepsis, unspecified organism (principal); R65.21 Severe sepsis with septic shock; E87.2 Acidosis; E87.5 Hyperkalemia; N10 Acute pyelonephritis; I10 Essential (primary) hypertension; K68.9 Other disorders of retroperitoneum; J96.01 Acute respiratory failure with hypoxia; I95.9 Hypotension, unspecified; N17.9 Acute kidney failure, unspecified; K74.60 Unspecified cirrhosis of liver; E66.01 Morbid (severe) obesity due to excess calories; Z20.828 Contact with and (suspected) exposure to other viral communicable diseases; I46.9 Cardiac arrest, cause unspecified; Z80.0 Family history of malignant neoplasm of digestive organs; Z82.49 Family history of ischemic heart disease and other diseases of the circulatory system; Z79.4 Long term (current) use of insulin; Z83.3 Family history of diabetes mellitus; Z90.49 Acquired absence of other specified parts of digestive tract; Z90.710 Acquired absence of both cervix and uterus; E11.65 Type 2 diabetes mellitus with hyperglycemia; J18.9 Pneumonia, unspecified organism
CPT/HCPCS: 36415; 36600; 71045; 74176; 80048; 80053; 80061; 80202; 80320; 81001; 82550; 82805; 82962; 83036; 83605; 83735; 83880; 84484; 85007; 85027; 85379; 85384; 85610; 85730; 86850; 86870; 86880; 86900; 86901; 86905; 86906; 86971; 87040; 87070; 87077; 87086; 87088; 87186; 87205; 90935; 93005; 94002; 94003; G0378; J0330; J1815; J2185; J2250; J2405; J2543; J2704; J7060; P9047